=== PATIENT | male | born 2005 | race Caucasian/White ===

== ENCOUNTER 2024-03-05 22:08 | Emergency (ER) | payer OTHER ==
[2024-03-05 22:22] VITALS: RESP 16
--- NOTE | 2024-03-06 00:34 | XR ---
EXAMINATION TYPE: XR chest 2V DATE OF EXAM: 03/06/2024 COMPARISON: NONE HISTORY: Lethargy. TECHNIQUE: Frontal and lateral views of the chest are obtained. FINDINGS: There is no focal air space opacity, pleural effusion, or pneumothorax seen. The cardiac silhouette size is within normal limits. The osseous structures are intact. IMPRESSION: No acute cardiopulmonary process.
--- NOTE | 2024-03-06 03:21 | ED ---
Psych HPI - General Source: patient Mode of arrival: ambulatory <Kamila Robertson - Last Filed: 03/06/24 04:22> <Man Polk - Last Filed: 03/06/24 15:38> - General Chief Complaint: Psychiatric Symptoms Stated Complaint: Weakness,Dizziness Time Seen by Provider: 03/05/24 23:28 - History of Present Illness Initial Comments: 19-year-old male presenting with chief complaint of "I feel drained". Patient has been feeling quite fatigued today. He tells me that he has gotten about 3 hours of sleep over the last 48 hours. He has started a new job working night shifts and has had difficulty falling asleep. Patient has history of depression. His and today he is concerned for his mental health. The patient denies any suicidal or homicidal ideation. No chest pain or difficulty breathing. No abdominal pain nausea or vomiting. No fever, chills, cough, congestion, sore throat. (Kamila Robertson) - Related Data Home Medications Medication Instructions Recorded Confirmed No Known Home Medications 03/06/24 03/06/24 Allergies Allergy/AdvReac Type Severity Reaction Status Date / Time No Known Allergies Allergy Verified 03/06/24 11:49 Review of Systems ROS Other: All systems not noted in ROS Statement are negative. <Kamila Robertson - Last Filed: 03/06/24 04:22> ROS Other: All systems not noted in ROS Statement are negative. <Man Polk - Last Filed: 03/06/24 15:38> ROS Statement: Those systems with pertinent positive or pertinent negative responses have been documented in the HPI. Past Medical History Past Medical History: No Reported History History of Any Multi-Drug Resistant Organisms: None Reported Past Surgical History: No Surgical Hx Reported Past Psychological History: Depression Smoking Status: Current every day smoker Past Alcohol Use History: Rare Past Drug Use History: Marijuana <Kamila Robertson - Last Filed: 03/06/24 04:22> General Exam Limitations: no limitations General appearance: alert, in no apparent distress Head exam: Present: atraumatic, normocephalic Eye exam: Present: normal appearance Neck exam: Present: normal inspection. Absent: meningismus Respiratory exam: Present: normal lung sounds bilaterally. Absent: respiratory distress, wheezes, rales, rhonchi, stridor Cardiovascular Exam: Present: regular rate, normal rhythm, normal heart sounds. Absent: systolic murmur, diastolic murmur, rubs, gallop, clicks Extremities exam: Absent: pedal edema Neurological exam: Present: alert, oriented X3 Psychiatric exam: Present: normal affect, normal mood Skin exam: Present: warm, dry <Kamila Robertson - Last Filed: 03/06/24 04:22> Course <Man Polk - Last Filed: 03/06/24 15:38> Vital Signs 03/05/24 03/06/24 22:14 15:19 Temperature 98.7 F 97.9 F Pulse Rate 74 65 Respiratory 16 16 Rate Blood Pressure 127/74 142/74 O2 Sat by Pulse 98 100 Oximetry - Reevaluation(s) Reevaluation #1: Records reviewed (Man Polk) Reevaluation #2: Medically clear for psychiatric evaluation (Man Polk) Medical Decision Making <Kamila Robertson - Last Filed: 03/06/24 04:22> <Man Polk - Last Filed: 03/06/24 15:38> - Medical Decision Making Was pt. sent in by a medical professional or institution ([facility], [employer], urgent care, hospital, or snf...) When possible be specific @ -No Did you speak to anyone other than the patient for history (EMS, parent, family, police, friend...)? What history was obtained from this source @ -No Did you review nursing and triage notes (agree or disagree)? Why? @ -I reviewed and agree with nursing and triage notes Were old charts reviewed (outside hosp., previous admission, EMS record, old EKG, old radiological studies, urgent care reports/EKG's, snf records)? Report findings @ -No old charts were reviewed Differential Diagnosis (chest pain, altered mental status, abdominal pain women, abdominal pain men, vaginal bleeding, weakness, fever, dyspnea, syncope, headache, dizziness, GI bleed, back pain, seizure, CVA, palpatations, mental health, musculoskeletal)? @ -Differential Mental Health Depression, anxiety, bipolar, psychosis, schizophrenia, borderline personality, situational depression, adjustment disorder, behavioral disorder, brain tumor, malingering, substance abuse, encephalopathy, medication reaction, dementia, hypothyroidism, degenerative neurologic disorder, lupus.... This is not meant to be all-inclusive list EKG interpreted by me (3pts min.). @ -EKG shows sinus rhythm ventricular rate 65. [place] interval 127. QRS 108. QT 385. QTc 396. X-rays interpreted by me (1pt min.). @ -None done CT interpreted by me (1pt min.). @ -None done U/S interpreted by me (1pt. min.). @ -None done What testing was considered but not performed or refused? (CT, X-rays, U/S, labs)? Why? @ -None What meds were considered but not given or refused? Why? @ -None Did you discuss the management of the patient with other professionals (professionals i.e. , PA, UPHOLSTERY MECHANIC, lab, RT, psych nurse, high school social studies tutor, snow ranger, teacher, jail officer, supervisor case loading)? Give summary @ -No Was smoking cessation discussed for >3mins.? @ -No Was critical care preformed (if so, how long)? @ -No Were there social determinants of health that impacted care today? How? (Homelessness, low income, unemployed, alcoholism, drug addiction, transportation, low edu. Level, literacy, decrease access to med. care, senior living, rehab)? @ -No Was there de-escalation of care discussed even if they declined (Discuss DNR or withdrawal of care, Hospice)? DNR status @ -No What co-morbidities impacted this encounter? (DM, HTN, Smoking, COPD, CAD, Cancer, CVA, ARF, Chemo, Hep., AIDS, mental health diagnosis, sleep apnea, morbid obesity)? @ -None Was patient admitted / discharged? Hospital course, mention meds given and route, prescriptions, significant lab abnormalities, going to OR and other pertinent info. @ -19-year-old male presenting with chief complaint of fatigue. He has not been sleeping well due to starting a new job requiring him to work night shifts. His aunt is concerned for his mental health. Patient has history of depression. He denies any suicidal or homicidal ideation. He is negative for influenza, RSV, COVID. Chest x-ray shows no acute process. EKG shows sinus rhythm. His aunt is requesting that he speak to a mental health professional, I informed them that EPS services will not be available until tomorrow morning. His aunt then fills out a petition. Patient is medically cleared and awaiting EPS evaluation. (Kamila Robertson) 19 male seen eval by psychiatry stable for discharge home (Man Polk) - Lab Data Lab Results 03/05/24 Range/Units 00:00 Influenza Type A (PCR) Not Detected (Not Detectd) Influenza Type B (PCR) Not Detected (Not Detectd) RSV (PCR) Not Detected (Not Detectd) SARS-CoV-2 (PCR) Not Detected (Not Detectd) Disposition <Kamila Robertson - Last Filed: 03/06/24 04:22> Is patient prescribed a controlled substance at d/c from ED?: No <Man Polk - Last Filed: 03/06/24 15:38> Clinical Impression: Depression, Acute anxiety Disposition: HOME SELF-CARE Condition: Fair Instructions (If sedation given, give patient instructions): Depression (ED) Referrals: None,Stated [Primary Care Provider] - 1-2 days
[2024-03-06 15:51] VITALS: BP 142/74; PULSE 65; TEMP 97.9
== END 2024-03-06 15:37 | disposition home or self-care (01) ==
LOC: EC 22:08
DX: F41.9 Anxiety disorder, unspecified (principal); F32.A Depression, unspecified; F17.200 Nicotine dependence, unspecified, uncomplicated; F12.90 Cannabis use, unspecified, uncomplicated; Z11.52 Encounter for screening for COVID-19
CPT/HCPCS: 71046; 82075; 87636; 93005; 99285